=== PATIENT | male | born 1990 | race Caucasian/White ===

== ENCOUNTER 2021-12-21 08:50 | Emergency (ER) | payer SELFPAY ==
[2021-12-21] MEDS ORDERED: traMADol HCl 50 MG TAB ONE (10:23)
== END 2021-12-21 10:28 | disposition home or self-care (01) ==
LOC: MADERS 08:50
DX: S50.02XA Contusion of left elbow, initial encounter (principal); S63.502A Unspecified sprain of left wrist, initial encounter; J45.909 Unspecified asthma, uncomplicated; Z87.891 Personal history of nicotine dependence; W01.0XXA Fall on same level from slipping, tripping and stumbling without subsequent striking against object, initial encounter